=== PATIENT | male | born 1975 ===

== ENCOUNTER 2021-08-22 02:44 | Emergency (ER) | payer SELFPAY ==
[2021-08-22 02:58] VITALS: BP 123/83
[2021-08-22] MEDS ORDERED: SODIUM CHLORIDE 0.9% 1000 ML 1,000 ML IV ONE (04:06)
[2021-08-22] MEDS ORDERED: ASPIRIN 325 MG TAB PO ONE (04:06)
[2021-08-22 04:14] LABS: Basophils # (Auto) 0.1 K/mm3 (0.0-0.1); Basophils % (Auto) 0.7 % (0.0-1.8); Eosinophils # (Auto) 0.3 K/mm3 (0.0-0.4); Eosinophils % (Auto) 3.5 % (0.0-4.3); Hematocrit 43.6 % (35.5-45.6); Hemoglobin 14.3 gm/dl (11.8-15.2); Lymphocytes # (Auto) 2.7 K/mm3 (1.2-5.4); Lymphocytes % (Auto) 36.8 % (13.4-35.0); Mean Corpuscular HGB Conc 33 % (32-34); Mean Corpuscular Volume 97 fl (84-94); Monocytes # (Auto) 0.5 K/mm3 (0.0-0.8); Monocytes % (Auto) 6.2 % (0.0-7.3); Platelet Count 239 K/mm3 (140-440); Red Blood Count 4.51 M/mm3 (3.65-5.03); Red Cell Distribution Width 12.6 % (13.2-15.2)
--- NOTE | 2021-08-22 04:14 | Emergency Department Report ---
ED General Adult HPI - General Chief complaint: Dizziness Stated complaint: DIZZINESS Source: patient Mode of arrival: Ambulatory Limitations: Physical Limitation - History of Present Illness Initial comments: Patient is a 45-year-old -[place] male with no past medical history presents to the ED with complaint of acute onset lightheadedness and dizziness with a near syncopal episode about 2 hours ago. Patient also states that he has also had persistent diffuse low abdominal pain which improves with bowel movement. Patient states that the near syncopal episode occurred when she tried to wake up out of bed to go to work with a brief bilateral blurry vision. Patient denies syncope, chest pain, shortness of breath, nausea and vomiting, diarrhea, headache, palpitations, seizures, fever, chills, cough, sore throat, nasal and sinus congestion or change in vision. MD Complaint: Lightheadedness or dizziness -: Sudden, hour(s) (2) Location: head, abdomen Radiation: non-radiation Severity scale (0 -10): 0 Quality: dull Consistency: now resolved Improves with: rest Worsens with: movement Associated Symptoms: denies other symptoms. denies: confusion, chest pain, cough, diaphoresis, fever/chills, headaches, loss of appetite, malaise, nausea/vomiting, rash, seizure, shortness of breath, syncope, weakness, other Treatments Prior to Arrival: none - Related Data Allergies Allergy/AdvReac Type Severity Reaction Status Date / Time No Known Allergies Allergy Unverified 08/22/21 02:59 ED Review of Systems ROS: Stated complaint: DIZZINESS Other details as noted in HPI Constitutional: denies: chills, fever Eyes: vision change (Blurry vision). denies: eye pain, eye discharge ENT: denies: ear pain, throat pain Respiratory: denies: cough, shortness of breath, wheezing Cardiovascular: other (Near syncopal episode). denies: chest pain, palpitations Endocrine: no symptoms reported Gastrointestinal: denies: abdominal pain, nausea, vomiting, diarrhea Genitourinary: denies: urgency, dysuria Musculoskeletal: denies: back pain, joint swelling, arthralgia Skin: denies: rash, lesions Neurological: other (Lightheadedness and dizziness). denies: headache, weakness, paresthesias Psychiatric: denies: anxiety, depression Hematological/Lymphatic: denies: easy bleeding, easy bruising ED Physical Exam - General Limitations: No Limitations, Physical Limitation General appearance: alert, in no apparent distress - Head Head exam: Present: atraumatic, normocephalic, normal inspection - Eye Eye exam: Present: normal appearance, PERRL, EOMI Pupils: Present: normal accommodation - ENT ENT exam: Present: normal exam, normal orophraynx, mucous membranes moist, TM's normal bilaterally, normal external ear exam - Neck Neck exam: Present: normal inspection, full ROM. Absent: tenderness - Respiratory Respiratory exam: Present: normal lung sounds bilaterally. Absent: respiratory distress, wheezes, rales, rhonchi, chest wall tenderness, accessory muscle use, decreased breath sounds, other - Cardiovascular Cardiovascular Exam: Present: regular rate, normal rhythm, normal heart sounds. Absent: systolic murmur, diastolic murmur, rubs, gallop - GI/Abdominal GI/Abdominal exam: Present: soft, normal bowel sounds. Absent: tenderness, guarding, hyperactive bowel sounds, hypoactive bowel sounds, organomegaly - Extremities Exam Extremities exam: Present: normal inspection, full ROM, normal capillary refill - Back Exam Back exam: Present: normal inspection, full ROM. Absent: tenderness, CVA tenderness (R), CVA tenderness (L), muscle spasm, paraspinal tenderness, vertebral tenderness - Neurological Exam Neurological exam: Present: alert, oriented X3, CN II-XII intact, normal gait, reflexes normal - Psychiatric Psychiatric exam: Present: normal affect, normal mood - Skin Skin exam: Present: warm, dry, intact, normal color. Absent: rash ED Course Vital Signs 08/22/21 02:57 Temperature 98.2 F Pulse Rate 98 H Respiratory 22 Rate Blood Pressure 123/83 [Left] O2 Sat by Pulse 99 Oximetry ED Medical Decision Making - Medical Decision Making This is a 45-year-old -[place] male with no past medical history presents to the ED with complaint of acute onset lightheadedness and dizziness with a near syncopal episode about 2 hours ago. Patient also states that he has also had persistent diffuse low abdominal pain which improves with bowel movem ent. Patient states that the near syncopal episode occurred when she tried to wake up out of bed to go to work with a brief bilateral blurry vision. In the ED, patient is alert and oriented x3 and is not in any distress. Patient is hemodynamically stable. EKG shows normal sinus rhythm with ventricular rate of 97 bpm with probable LVH. Labs were drawn but the patient left AMA stating that he had to leave the ED to go home. Patient signed AGAINST MEDICAL ADVICE in the ED and left. Therefore no further testing was performed. - Differential Diagnosis Dehydration; CAD; ACS; PE; pneumonia; sinusitis Critical care attestation.: If time is entered above; I have spent that time in minutes in the direct care of this critically ill patient, excluding procedure time. ED Disposition Clinical Impression: Postural dizziness with near syncope, Positional lightheadedness Disposition: 07 LEFT AGAINST MEDICAL ADVICE Is pt being admited?: No Does the pt Need Aspirin: No Condition: Undetermined Instructions: Near-Syncope, [place] Forms: AMA Form Time of Disposition: 04:20 Print Language: TURKMEN
[2021-08-22 05:06] LABS: Alanine Aminotransferase 13 units/L (7-56); Albumin 4.6 g/dL (3.9-5); BUN/Creatinine Ratio 9; Blood Urea Nitrogen 10 mg/dL (9-20); Calcium 8.8 mg/dL (8.4-10.2); Hemolysis Index 12
--- NOTE | 2021-08-23 10:22 | Electrocardiograph Report ---
[facility] Test Date: 2021-08-22 Test Time: 03:18:25 Pat Name: ANITA ROSE Department: Room: Gender: M Outside Salesperson: BRIDGETT : 1975 Requested By: STEVE FERNANDES Order Number: [id number] Reading MD: Franko Jenkins Measurements Intervals [place] Rate: 97 P: 81 SD: 131 QRS: 72 QRSD: 88 T: 46 QT: 331 QTc: 422 Interpretive Statements Sinus rhythm Biatrial enlargement Probable left ventricular hypertrophy No previous ECG available for comparison Electronically Signed On 08-23-2021 10:21:48 EST by Franko Jenkins
== END 2021-08-22 07:48 | disposition left against medical advice (07) ==
LOC: ED 02:44
DX: R42 Dizziness and giddiness (principal); R55 Syncope and collapse
CPT/HCPCS: 36415; 80053; 84484; 85025; 93005; 99283